=== PATIENT | female | born 1960 | race Caucasian/White ===

== ENCOUNTER 2018-03-24 05:56 | Day surgery (SDC) | payer BC, SELFPAY ==
[2018-03-24] VITALS (7 sets, daily range): BP systolic 117–156; BP diastolic 65–91; PULSE 66–88; RESP 10–20; TEMP 35.7–36.6; O2SAT 94–100
[2018-03-24] MEDS: Lactated Ringers 1,000 ML 80 ML IV (06:49)
[2018-03-24] MEDS: Bupivacaine 0.5% Pres-Free 30 ML VIAL (08:19)
--- NOTE | 2018-03-24 09:03 | PDOC.DSDIS_ITS ---
Discharge Plan Disposition Patient Disposition: HOME Condition: Improving Discharge Details Attending Provider: Antoine Quintana Primary Care Provider: Phylicia Evans Home Meds and New Rx's Prescriptions: No Action cyclobenzaprine 10 mg tablet 10 mg PO HS RF: 0 sumatriptan succinate [Imitrex] 100 mg tablet 100 mg PO ONCE RF: 0 venlafaxine [Effexor XR] 150 mg capsule,extended release 24hr 150 mg PO DAILY RF: 0 propranolol 10 mg tablet 10 mg PO DAILY RF: 0 ibuprofen [Advil] 200 mg tablet 200 mg PO QID PRNRF: 0 omeprazole 20 mg capsule,delayed release(DR/EC) 20 mg PO DAILY RF: 0 hydrochlorothiazide 25 mg tablet 25 mg PO DAILY RF: 0 alprazolam [Xanax] 2 mg tablet 2 mg PO HS RF: 0 propranolol 20 mg tablet 10 mg PO HS RF: 0 fluticasone [Allergy Relief (fluticasone)] 50 mcg/actuation spray,suspension 1 spray JUSTINA DAILY RF: 0 Prempro 0.45-1.5 mg tablet 1 tab PO DAILY RF: 0 Zyrtec 10 mg capsule 10 mg PO DAILY RF: 0 acetaminophen [Acetaminophen Extra Strength] 500 mg Tablet 1,000 mg PO Q6H PRNRF: 0 Multivitamin 50 Plus Tablet 1 tab PO RF: 0 Discharge Instructions Additional Instructions: KEEP YOUR RIGHT FOOT ELEVATED ABOVE HEART LEVEL MUCH POSSIBLE FOR THE NEXT 48-72 HOURS. YOU MAY WALK ON YOUR RIGHT FOOT AND PLACE MUCH WEIGHT ON IT COMFORT ALLOWS. INITIALLY YOU MAY NEED TO USE CRUTCHES FOR BALANCE AND PLACE THE MAJORITY OF YOUR WEIGHT ON THE HEEL OF YOUR POST OP SHOE. USE THE POST OP SHOE THE MAJORITY OF TIME. THIS INCLUDES SLEEPING IT EXTENDS BEYOND THE GREAT TOE AND PREVENTS THE BED COVERS FROM CATCHING ON THE GREAT TOE. YOU MAY LOOSEN THE ROSCOE BANDAGE IF IT FEELS TOO TIGHT.EXPECT SOME BLOODY DRAINAGE ON THE GAUZE BANDAGES. IT IS IMPORTANT TO MAXIMIZE ELEVATION TO LIMIT PAIN AND SWELLING SO ONLY GET UP TO GET SOMETHING TO EAT OR TO GO TO THE BATHROOM FOR THE FIRST COUPLE OF DAYS AFTER SURGERY. ON 03/28/18, YOU MAY REMOVE ALL OF YOUR BANDAGES AND GET YOUR WOUND WET IN THE SHOWER WITH SOAP AND WATER. GENTLY PAT THE STITCHES DRY AND COVER THEM WITH GAUZE. RE-APPLY THE POST OPERATIVE SHOE AND CONTINUE TO USE IT UNTIL FOLLOW-UP. FOR SHOWERING TOMORROW OR THE NEXT COUPLE OF DAYS KEEP YOUR FOOT DRY WITH A PLASTIC BAG ABOUT THE LOWER LEG. TAKE YOUR USUAL MEDICATIONS BEFORE. TAKE TYLENOL OR IBUPROFEN FOR MILDER PAIN. TYLENOL MAY BE TAKEN AT THE SAME TIME IBUPROFEN THEY ARE METABOLIZED DIFFERENTLY AND ARE NOT CROSS TOXIC. FOR MORE SERIOUS PAIN TAKE NORCO (HYDROCODONE 5/325MG) 1-2 EVERY 4 HOURS. [facility] REGULATIONS LIMIT THE AMOUNT OF NORCO THAT CAN BE PRESCRIBED TO 18 TABLETS. FOLLOW--UP WITH DR. QUINTANA IN 10-12 DAYS. Stand Alone Forms: DSU Post op Gianna, Renu Holland (DSU) Activity:: POST OP SHOE Shower/Bathe:: Cover Diet:: As Tolerated Discharge Orders Discharge Orders: Discharge Order (Routine); Ordered 03/24/18 Ordered By: Antoine Quintana
--- NOTE | 2018-03-24 10:23 | ROE_ITS ---
REPORT OF OPERATIVE PROCEDURE DATE OF PROCEDURE March 24, 2018 PREOPERATIVE DIAGNOSIS Hallux rigidus, right great toe. POSTOPERATIVE DIAGNOSIS Hallux rigidus, right great toe. PROCEDURE Cheilectomy right great toe. SURGEON Antoine Yeh M.D. HOME ORGANIZER Nurse. ANESTHETIC General via LMA by Kasia Gilbert CRNA PREP Chloraprep. INDICATIONS This patient has been followed by me for several years for hallux rigidus. She has failed conservativ e treatment. I recommended a cheilectomy of the great toe. I discussed with her the planned procedure . I re-reviewed that today in the Day Surgery holding area and she understood and wished to proceed. I marked her right foot with a surgical skin marker. DESCRIPTION OF PROCEDURE The patient was taken to the Operating Suite, where she underwent general anesthesia via LMA. Prophyl actic intravenous antibiotics were started consisting of Ancef 1 gram IV. A pneumatic tourniquet was applied to the proximal thigh. After prepping and draping the skin with ChloraPrep and applying steri le drapes, the limb was elevated for 2 minutes and then the tourniquet was inflated to 350 mmHg. I th en made a dorsal incision over the MTP joint of the great toe as described by Kunal. The incision was made just medial to the extensor hallucis longus tendon. The tendon was identified and retracted with Ragnell retractors. The underlying capsule was then incised and preserved. The patient was noted to have a loose body of articular cartilage immediately underneath the capsule. In addition, she had a v krupa prominent exostosis. Using a combination of sharp and blunt dissection, the metatarsal head was e xposed. A micro oscillating saw was then used to perform the cheilectomy as described by Kunal. The ed ges of the bone were carefully smoothed with a rasp. I noted that the patient had essentially no sign ificant MTP joint motion prior to surgery; afterwards, her range of motion was nearly 80 degrees of d orsiflexion. The wound was carefully irrigated. Bone wax was applied to the metaphyseal flare where t he bone had been cut. The capsule was then repaired with sutures of #2-0 Vicryl. The subcutaneous tis sues were repaired with sutures of #4-0 Vicryl, and the skin was closed with #4-0 Nylon in a horizont al mattress fashion. The tourniquet was deflated prior to closure of the subcutaneous tissues. Hemost asis was under control. A small amount of Marcaine, 10 cc of 0.5% solution was placed in the skin and subcutaneous tissues and intra-articularly to provide for postoperative analgesia. The wound was danny ssed with Xeroform gauze, 4x4s, a 3-inch conforming gauze bandages, followed by 3-inch Elias wrap and a postoperative shoe. The patient was taken to the Recovery Room in satisfactory condition tolerating the procedure well.
== END 2018-03-24 10:25 | disposition home or self-care (01) ==
PROVIDERS: PCP Physician Assistant Medical; Visit Provider Orthopaedic Surgery
PROC: (CPT 28289; principal; 2018-03-24 07:30)
DX: M20.21 Hallux rigidus, right foot (principal)
CPT/HCPCS: 28289; E0114

== ENCOUNTER → 2022-02-06 01:52 | Outpatient (CLI) | payer BC, SELFPAY ==
--- NOTE | 2022-02-06 07:15 | DI.MRI_ITS ---
Exam(s) MR UPPER JOINT LT WO CLINICAL HISTORY: lt shoulder pain, lt rotator cuff tear, m75.102. TECHNIQUE: Multiplanar multisequence MRI was performed. COMPARISON: None FINDINGS: MR examination of the shoulder was performed according to the usual protocol. There is no significant effusion of the glenohumeral joint. No fluid in the subacromial subdeltoid bu rsa. Bones and labrum: There are moderate hypertrophic degenerative changes of the acromioclavicular joint . Humeral head abuts the inferior acromial surface period there are subchondral cysts of the greater tuberosity of the humerus which appear to be degenerative period. Glenoid labrum appears effaced wi th no no definite discrete tear period. Rotator cuff: There is a massive rotator cuff tear involving the supraspinatus and infraspinatus ten dons with marked retraction by at least 3 cm. There is severe muscle atrophy of supraspinatus and in fraspinatus muscles. Teres minor and subscapularis appear fairly well maintained. Rotator interval shows abnormal signal but no definite tear. . Biceps tendon and anchor: Biceps tendon and anchor show normal signal and no evidence of a tear. Ben ps tendon is normally positioned in the bicipital groove. IMPRESSION: Massive rotator cuff tear with retraction of supraspinatus and infraspinatus tendons and severe muscu lar atrophy of supraspinatus and infraspinatus. Goutallier classification grade 3. DATA REPOSITORY:
== END ==
PROVIDERS: PCP Physician Assistant Medical; Visit Provider Student in an Organized Health Care Education/Training Program
DX: M75.102 Unspecified rotator cuff tear or rupture of left shoulder, not specified as traumatic (principal)
CPT/HCPCS: 73221

== ENCOUNTER → 2023-04-09 10:30 | Outpatient (BNVA) | payer MEDICARE, BC, SELFPAY | PROVIDERS: PCP Physician Assistant Medical; Referring Provider Physician Assistant Medical; Visit Provider Student in an Organized Health Care Education/Training Program | DX: M17.11 Unilateral primary osteoarthritis, right knee (principal); M17.12 Unilateral primary osteoarthritis, left knee | CPT/HCPCS: 20610; J1040 ==

== ENCOUNTER → 2023-07-20 10:25 | Outpatient (BNVA) | payer MEDICARE, BC, SELFPAY | PROVIDERS: PCP Physician Assistant Medical; Referring Provider Physician Assistant Medical; Visit Provider Student in an Organized Health Care Education/Training Program | DX: M17.11 Unilateral primary osteoarthritis, right knee (principal); M17.12 Unilateral primary osteoarthritis, left knee | CPT/HCPCS: 20610; J1010; J1040 ==

== ENCOUNTER → 2023-10-19 12:50 | Outpatient (BNVA) | payer MEDICARE, BC, SELFPAY | PROVIDERS: PCP Physician Assistant Medical; Referring Provider Physician Assistant Medical; Visit Provider Student in an Organized Health Care Education/Training Program | DX: M17.11 Unilateral primary osteoarthritis, right knee (principal); M17.12 Unilateral primary osteoarthritis, left knee | CPT/HCPCS: 20610; J1010 ==

== ENCOUNTER 2024-01-18 15:37 | Outpatient (CLI) | payer MEDICARE, BC, SELFPAY ==
--- NOTE | 2024-01-18 12:18 | DI.RAD_ITS ---
Exam(s) XR KNEE RT 3V AP,LAT,AVILA XR KNEE LT 3V AP,LAT,AVILA XR STANDING ALIGNMENT EXAM: XR STANDING ALIGNMENT and XR knee bilateral 3 V CLINICAL HISTORY: eval knee alignment. TECHNIQUE: 2D digital imaging was performed. Ten images were obtained. COMPARISON: CR LEFT KNEE 3 VIEW COMPLETE from 02/07/2014 CR RIGHT KNEE 3 VIEWS from 07/15/2017 FINDINGS: BONES: The hips are well maintained. In the right knee, there is marked narrowing of the patellofemo ral joint medially. There osteophytes seen at the posterior patella and the medial femoral tibial elias int. No significant joint effusion is seen. In the left knee, there is moderate narrowing of the me dial femoral tibial joint and mild narrowing of the patellofemoral joint. Osteophytes are seen in al l 3 joint compartments. There are old healed left tibial and fibular fractures. The ankles are well maintained.There is no significant leg length discrepancy. SOFT TISSUE: Normal. IMPRESSION: Osteoarthritis of the knees bilaterally as described above. DATA REPOSITORY: RADIATION DOSE DELIVERED:
== END 2024-01-18 15:38 | disposition home or self-care (01) ==
LOC: DIORS 15:37
PROVIDERS: PCP Physician Assistant Medical; Referring Provider Physician Assistant Medical; Visit Provider Student in an Organized Health Care Education/Training Program
DX: M17.0 Bilateral primary osteoarthritis of knee (principal)
CPT/HCPCS: 73562; 77073

== ENCOUNTER 2024-02-25 03:07 | Outpatient (CLI) | payer MEDICARE, BC, SELFPAY ==
[2024-02-25 15:20] LABS: HCT 42.6 % (36.0-46.0); HGB 14.4 g/dL (11.2-15.7); MCH 31.4 pg (27.0-33.0); MCHC 33.8 % (32.0-36.0); MCV 93 fL (80-95); MPV 9.1 fL (8.0-11.0); Platelet Count 316 10^3/uL (130-400); RBC 4.59 10^6/uL (3.93-5.22); RDW 11.8 % (11.7-14.6); RDW-SD 40.4 fL
[2024-02-25 16:17] LABS: Anion Gap 7.8 mmol/L (3-11); BUN 24 mg/dL (7-18); CO2 30.2 mmol/L (21.0-32.0); CREATININE 0.8 mg/dL (0.55-1.02); Calcium 9.5 mg/dL (8.5-10.1); Chloride 99 mmol/L (98-107); Estimated GFR 81.21 (mL/min/1.73m2); Glucose 107 mg/dL (74-106); Potassium 3.8 mmol/L (3.5-5.1); Sodium 137 mmol/L (136-145)
== END 2024-02-25 03:08 | disposition home or self-care (01) ==
LOC: LBO 03:07
PROVIDERS: PCP Physician Assistant Medical; Visit Provider Student in an Organized Health Care Education/Training Program
DX: M17.12 Unilateral primary osteoarthritis, left knee (principal); Z01.818 Encounter for other preprocedural examination
CPT/HCPCS: 36415; 80048; 85027

== ENCOUNTER 2024-03-09 06:01 | Day surgery (SDC) | payer MEDICARE, BC, SELFPAY ==
[2024-03-09] VITALS (18 sets, daily range): BP systolic 108–130; BP diastolic 64–85; PULSE 59–84; RESP 14–96; TEMP 36.1–36.6; O2SAT 92–100; BMI 21.9
[2024-03-09] MEDS: Gabapentin 300 MG CAP PO (07:00)
[2024-03-09] MEDS: Celecoxib 200 MG CAP 400 MG PO (07:00)
[2024-03-09] MEDS: Acetaminophen 500 MG TAB 1000 MG PO (07:00)
[2024-03-09] MEDS: Normal Saline 1,000 ML 80 ML IV (07:10)
--- NOTE | 2024-03-09 07:15 | W.PM.DSUDISC ---
Date of service: 03/09/24 Discharge Plan Disposition Patient Disposition: Home Condition: Good Discharge Details Reason For Visit: L TKR Attending Provider: Yinka Carpio Primary Care Provider: Phylicia Evans Home Meds and New Rx's Prescriptions: New celecoxib 200 mg capsule 200 mg PO BID Qty: 60 0RF aspirin 81 mg tablet,delayed release (DR/EC) 81 mg PO BID Qty: 60 0RF acetaminophen 500 mg tablet 1,000 mg PO TID Qty: 90 3RF dexamethasone 4 mg tablet 4 mg PO DAILY Qty: 2 0RF gabapentin 300 mg capsule 300 mg PO QHS Qty: 14 0RF oxycodone 5 mg tablet 5 mg PO Q4H MDD 6 tabs PRN (Reason: pain) Qty: 20 0RF Continued sumatriptan succinate [Imitrex] 100 mg tablet 100 mg PO ONCE propranolol 10 mg tablet 10 mg PO DAILY omeprazole 20 mg capsule,delayed release(DR/EC) 20 mg PO DAILY hydrochlorothiazide 25 mg tablet 25 mg PO DAILY alprazolam [Xanax] 2 mg tablet 2 mg PO HS fluticasone propionate [Allergy Relief (fluticasone)] 50 mcg/actuation spray,suspension 1 spray JUSTINA DAILY propranolol 20 mg tablet 20 mg PO HS cyclobenzaprine 10 mg tablet 10 mg PO HS venlafaxine [Effexor XR] 150 mg capsule,extended release 24hr 75 mg PO DAILY estradiol 0.025 mg/24 hr patch semiweekly 4 patch transdermal ONCE Patient Comments: placed lower mid abdomen Rx Instructions: 0.50 bupropion HCl 100 mg tablet 100 mg PO DAILY biotin 5,000 mcg tablet,chewable 5,000 mcg PO DAILY flaxseed oil 1,000 mg capsule 1,000 mg PO DAILY Rx Instructions: administer with a meal omega 5-jxx-jgn-fish oil [Fish Oil] 360-1,200 mg capsule,delayed release(DR/EC) 1 cap PO DAILY cholecalciferol (vitamin D3) 25 mcg (1,000 unit) capsule 25 mcg PO DAILY progesterone micronized 100 mg capsule 100 mg PO QAM Rx Instructions: off 7 days; repeat cycle Zyrtec 10 mg capsule 10 mg PO DAILY PRN Multivitamin 50 Plus Tablet 1 tab PO DAILY bimatoprost 0.03 % drops with applicator TOPICAL Patient Comments: APPLY 1 DROP VIA APPLICATORONCE A DAY Discontinued naproxen [Naprosyn] 500 mg tablet 500 mg PO BID Discharge Instructions Additional Instructions: Total Knee Discharge Instructions Activity: The most important activity is to walk and to work on gentle motion (both flexion and extension). You should try to take short walks a few times a day. It is important that when resting you work on keeping the knee straight. Avoid putting a pillow behind the knee as this will encourage flexion. Work on range of motion exercises as provided by Physical Therapy. - Start outpatient physical therapy within 2 weeks. - You should wear the JALEEL hose on both legs for 2 weeks. You may remove these at night. You may also use any compression sock in place of the JALEEL hose. - Utilize [employer] to review exercises, see videos on exercises and obtain basic information pertaining to your surgery and your recovery. Dressing: Remove the Elias wrap by 2 days after your surgery and put on the JALEEL stocking given to you from the hospital. Keep the surgical dressing (underneath the ELIAS wrap) in place for at least one week. After the first week it may be removed and replaced with light gauze and tape or nothing. The wound and dressing may get wet after 3 days but avoid soaking the dressing or otherwise it will need to be changed. Many people prefer covering the dressing with cling wrap (saran wrap) to minimize it from getting soaked. If it gets wet, just pat dry. If it starts to peel off then it will need to be changed. Medications: - You should take Tylenol and anti-inflammatory Celebrex as your primary pain control medications. If the Celebrex is too expensive or not covered, please call the office for another alternative (Advil/Ibuprofen or Naproxen/Aleve) - You have been prescribed a stronger pain medication Oxycodone for breakthrough pain, take as needed as prescribed. - You will continue your omeprazole to help reduce stomach acid and reflux. - You have been prescribed Gabapentin to take at night for restlessness and nerve pain. - You will be taking Aspirin 81mg twice a day for DVT prevention unless instructed otherwise. - You have also been prescribed Decadron to take to control post-operative nausea and pain. You will start this tomorrow. - If you have constipation you should take Colace or Miralax (both [id number]-[id number]). It takes most people 3-4 days to have a bowel movement. Follow-up: 2 weeks If you have any acute concerns or questions, please do not hesitate to contact the office at [phone]. You may contact Dr. Carpio with any questions after hours through the hospital at [phone] or on his cell phone at [phone]. Referrals: Yinka Carpio MD [ [facility] STAFF PHYSICIAN] - Equipment/Supplies: Walker Activity:: Activity as Tolerated Shower/Bathe:: 72 hours Diet:: As Tolerated Discharge Orders Discharge Orders: Discharge Order (Routine); Ordered 03/09/24 Ordered By: Jairon Dunbar DS: Diagnosis Discharge Diagnosis (1) Degenerative arthritis of left knee: Status: Chronic
--- NOTE | 2024-03-09 07:24 | W.ANESPRE ---
General Info Date of Service Date Performed: 03/09/24 Height: 4 ft 11 in Weight: 49.4 kg Body Mass Index (BMI): 21.9 Surgical Procedure: Operation Date: 03/09/24 07:40 Proposed Procedure Side Surgeon p Knee Total Arthroplasty w/OrthAlign, Cementless CR Left Yinka Carpio MD Actual Procedure Side Surgeon p Knee Total Arthroplasty w/OrthAlign, Cementless CR Left Yinka Carpio MD Meds Allergies and Home Medications Allergies Allergy/AdvReac Type Severity Reaction Status Date / Time hylan G-F 20 (From [facility]) AdvReac Mild pt unable Verified 03/09/24 06:24 to remember exactly. Home Medication ?Medication ?Instructions ?Recorded alprazolam 2 mg tablet (Xanax) 2 mg PO HS 03/15/18 fluticasone propionate 50 1 spray intranasal DAILY 03/15/18 mcg/actuation nasal spray,suspension (Allergy Relief (fluticasone)) hydrochlorothiazide 25 mg tablet 25 mg PO DAILY 03/15/18 omeprazole 20 mg capsule,delayed 20 mg PO DAILY 03/15/18 release propranolol 10 mg tablet 10 mg PO DAILY 03/15/18 sumatriptan succinate 100 mg 100 mg PO ONCE 03/15/18 tablet (Imitrex) [id number] 1 tab PO DAILY 03/24/18 tablet (Multivitamin 50 Plus tablet) propranolol 20 mg tablet 20 mg PO HS 10/24/19 progesterone micronized 100 mg 100 mg PO QAM 09/12/21 capsule cyclobenzaprine 10 mg tablet 10 mg PO HS 01/13/22 estradiol 0.025 mg/24 hr 4 patch transdermal ONCE 07/20/23 semiweekly transdermal patch venlafaxine 150 mg 75 mg PO DAILY 07/20/23 capsule,extended release 24 hr (Effexor XR) cetirizine 10 mg capsule (Zyrtec) 10 mg PO DAILY PRN 08/20/23 biotin 5,000 mcg chewable tablet 5,000 mcg PO DAILY 02/25/24 bupropion HCl 100 mg tablet 100 mg PO DAILY 02/25/24 cholecalciferol (vitamin D3) 25 25 mcg PO DAILY 02/25/24 mcg (1,000 unit) capsule flaxseed oil 1,000 mg capsule 1,000 mg PO DAILY 02/25/24 omega-3 360 iq-zrp-heq-fish oil 1 cap PO DAILY 02/25/24 1,200 mg capsule,delayed release (Fish Oil) acetaminophen 500 mg tablet 1,000 mg (2 x 500 mg) PO TID #90 03/09/24 tabs aspirin 81 mg tablet,delayed 81 mg PO BID #60 tabs 03/09/24 release bimatoprost 0.03 % drops with topical 03/09/24 applicator, eyelash base celecoxib 200 mg capsule 200 mg PO BID #60 caps 03/09/24 dexamethasone 4 mg tablet 4 mg PO DAILY #2 tabs 03/09/24 gabapentin 300 mg capsule 300 mg PO QHS #14 caps 03/09/24 oxycodone 5 mg tablet 5 mg PO Q4H PRN pain #20 tabs 03/09/24 Current Visit Medications: Current Medications Generic Name Dose Route Start Last Admin Trade Name Freq PRN Reason Stop Dose Admin Acetaminophen 1,000 mg 03/09/24 06:00 03/09/24 07:00 Acetaminophen 500 Mg Tab PO 03/09/24 23:59 1,000 mg PREOP ROMA Administration Acetaminophen 1,000 mg 03/09/24 07:12 Acetaminophen 500 Mg Tab PO 04/08/24 08:29 TID PRN Analgesia Celecoxib 400 mg 03/09/24 06:00 03/09/24 07:00 Celecoxib 200 Mg Cap PO 03/09/24 23:59 400 mg PREOP ROMA Administration Docusate Sodium 100 mg 03/09/24 07:12 Docusate Sodium 100 Mg Cap PO 04/08/24 07:11 BID PRN PRN Constipation Gabapentin 300 mg 03/09/24 06:00 03/09/24 07:00 Gabapentin 300 Mg Cap PO 03/09/24 23:59 300 mg PREOP ROMA Administration Gabapentin 300 mg 03/09/24 20:00 Gabapentin 300 Mg Cap PO 04/08/24 19:59 HS ROMA Ringer's Solution 1,000 mls @ 80 mls/hr 03/09/24 06:00 IV 03/09/24 23:59 INFUSION ROMA Cefazolin Sodium/Dextrose 2 gm in 50 mls @ 100 mls/hr 03/09/24 06:00 Ancef Duplex IVPB 03/09/24 23:59 PREOP ROMA Tranexamic Acid/Sodium Chloride 1,000 mg in 100 mls @ 600 mls/hr 03/09/24 06:00 IVPB 03/09/24 23:59 PREOP ROMA Sodium Chloride 1,000 mls @ 80 mls/hr 03/09/24 07:15 03/09/24 07:10 Saline 1000ml Bag IV 04/08/24 07:14 80 mls/hr INFUSION ROMA Administration IV Miscellaneous Supplies 1 each 03/09/24 06:00 Iv Access IV 03/09/24 23:59 DIRECTED ROMA Ondansetron HCl 4 mg 03/09/24 07:12 Ondansetron 4 Mg/2 Ml Vial IVP 04/08/24 07:11 Q6H PRN PRN Nausea Oxycodone HCl 0 mg 03/09/24 07:12 Oxycodone 5 Mg Tab PO 04/08/24 07:11 Q3H PRN PRN Pain Polyethylene Glycol 17 gm 03/09/24 07:12 Polyethylene Glycol 3350 17 Gm Packet PO 04/08/24 07:11 BID PRN PRN Constipation Sodium Chloride 0 ml 03/09/24 06:00 Normal Saline Flush 10 Ml Syr IV 03/09/24 23:59 PRN PRN Sodium Chloride 0 ml 03/09/24 06:00 Normal Saline 10 Ml Vial IJ 03/09/24 23:59 DIRECTED PRN Sterile Water 0 ml 03/09/24 06:00 Water,Injection,Sterile 10 Ml Vial IJ 03/09/24 23:59 DIRECTED PRN PFSH Active Problems Active Problems: Problem Status Onset Code Rotator cuff tear arthropathy Acute M75.100, M12.819 Depressive disorder Chronic F32.A Left carpal tunnel syndrome Acute G56.02 Left rotator cuff tear arthropathy Acute M75.102, M12.812 Arthritis of right knee Chronic M17.11 Pre-operative examination Acute Z01.818 Hallux rigidus, right foot Chronic M20.21 Degenerative arthritis of left knee Chronic M17.12 Medical History Medical History (Updated 03/09/24 @ 06:32 by Gisella Hawkins) History of insertion of dental endosseous implant GERD (gastroesophageal reflux disease) Migraines HTN (hypertension) Surgical History Surgical History (Updated 03/09/24 @ 06:32 by Gisella Hawkins) Hx of colonoscopy H/O foot surgery cheilectomy right greater toe Tobacco Smoking/Tobacco Use Status: Never Alcohol Alcohol Intake: current Alcohol intake frequency: a few times a week Alcohol type: beer Substance Use Substance use: Daily Substance use type: marijuana Details: edible Vital Signs and Lab Results Vital Signs Most Recent Vital Signs in EMR: Most Recent Vital Signs Temp Pulse Resp BP Pulse Ox 36.6 C 75 16 130/75 99 03/09/24 06:10 03/09/24 06:10 03/09/24 06:10 03/09/24 06:10 03/09/24 06:10 Lab Results Blood Type / Crossmatch: No Data to Display Complete Blood Count: White Blood Count 7.00 10^3/uL (4.4-10.8) 02/25/24 15:14 Red Blood Count 4.59 10^6/uL (3.93-5.22) 02/25/24 15:14 Hemoglobin 14.4 g/dL (11.2-15.7) 02/25/24 15:14 Hematocrit 42.6 % (36.0-46.0) 02/25/24 15:14 Platelet Count 316 10^3/uL (130-400) 02/25/24 15:14 Complete Metabolic Panel: Sodium 137 mmol/L (136-145) 02/25/24 15:14 Potassium 3.8 mmol/L (3.5-5.1) 02/25/24 15:14 Chloride 99 mmol/L (98-107) 02/25/24 15:14 Carbon Dioxide 30.2 mmol/L (21.0-32.0) 02/25/24 15:14 BUN 24 mg/dL (7-18) H 02/25/24 15:14 Creatinine 0.8 mg/dL (0.55-1.02) 02/25/24 15:14 Est GFR (CKD-EPI 2020) 81.21 (mL/min/1.73m2) 02/25/24 15:14 Calcium 9.5 mg/dL (8.5-10.1) 02/25/24 15:14 Glucose 107 mg/dL (74-106) H 02/25/24 15:14 Liver Function Panel: No Data to Display Coagulation Panel: No Data to Display Cardiac Panel: No Data to Display Arterial Blood Gas: No Data to Display Venous Blood Gas: No Data to Display Pancreas Panel: No Data to Display Thyroid Panel: No Data to Display Infectious Disease: No Data to Display Blood Cultures: No Data to Display Toxicology Panel: No Data to Display Anesthesia Assessment and Plan Anesthesia History Personal History: No History of Anesthesia Complications Family History: No Family History of Anesthesia Complications Exercise Tolerance Exercise Tolerance: Metabolic Equivalents>4 Pertinent Negatives Pertinent Negatives: No Major Cardiovascular Symptoms or Complaints and No Major Pulmonary Symptoms or Complaints Cardiac & Pulmonary Exam Cardiac Exam: Normal S1/S2 Heart Sounds Pulmonary Exam: Clear Bilateral Breath Sounds Implantable Cardiac Device Does patient have a Pacemaker or an ICD?: No Airway Exam Known Difficult Airway: No Mallampati Class: 1 Mouth Opening: Normal (> 3cm) Thyromental Distance: Greater than 3 cm Neck Range of Motion: Full ROM Neck Circumference: Normal Teeth Condition: Normal Dentition ASA Classification ASA Score: ASA 2 Emergency Case?: No NPO Status NPO Status: NPO Clears >2 hours, Solids >8 hours Anesthesia Plan Resuscitation Status: Full Code Anesthesia Technique: Spinal Anesthesia Airway Planned: Natural Airway Pain Management: Surgeon and patient request nerve block Monitors Used: Standard Monitors
[2024-03-09] MEDS: Lactated Ringers 1,000 ML 80 ML IV (07:36)
--- NOTE | 2024-03-09 07:43 | ROE_ITS ---
Operative Note Operative Note PRE-OP DIAGNOSIS: Left Knee Arthritis POST-OP DIAGNOSIS: same PROCEDURE: Left Total Knee Replacement with Intraoperative Navigation SURGEON: Yinka Carpio CAMPUS CHAPLAIN: Neyda Dunbar ANESTHESIA TYPE: Spinal Refer to Anesthesia Record PATHOLOGY: none sent TOURNIQUET TIME: 0 COMPLICATIONS: None Patient was transported to: PACU Patient's condition: stable Implants: 1. Depuy Attune Cementless Cruciate Retaining Femoral Component, Size [6] 2. Depuy Attune Cementless Fixed Bearing Tibial Component, Size [6] 3. Depuy Attune [6x6]mm CR/FB Poly 4. Depuy Attune Patellar Component, Size [35] Indications: I have seen Kaylyn in clinic for symptoms of bilateral, left worse than right, knee arthritis, confirmed with radiographic findings. She has exhausted nonoperative methods and was having significant limitations in daily function and desired better function and less pain. I discussed the technical details of a knee replacement. I explained the risks of the procedure to include, but not limited to, bleeding, infection, pain, stiffness, fracture, damage to nerves and vessels, damage to muscles and tendons, loosening, need for repeat procedure, blood clot and cardiopulmonary demise. Despite these risks, Kaylyn elected to proceed. Given the previous malunion of her distal tib-fib from remote fracture, I utilized intraoperative navigation, OrthoAlign. Findings: There was significant signs of arthritis throughout the knee. Procedure Description: Kaylyn was greeted in the preoperative holding area where the correct side was identified and marked. The consent was reviewed with the patient and signed. The history and physical was updated. All questions were answered. Preoperative mediacations were administered: Acetaminophen 1000mg, Celebrex 400mg, and Gabapentin 300mg. An adductor canal block was then administered by the anesthesia team in the DSU. She was taken back to the operating room. A spinal anesthestic was then administered. The patient was placed into the supine position on the operating room table. Posts were placed for positioning during the procedure. All bony prominences were well padded. Prophylactic antibiotics in the form of Cefazolin were administered. 1g of Tranxemic Acid was given intravenously within 30 minutes of incision. The left leg was then prepped with Chloraprep and draped in a standard fashion with impervious stockinette. A second prep with Chloraprep was performed prior to application of Iodine impregnated skin protection. A timeout to confirm correct identity, side and site, procedure, allergies, anesthesia, and medical concerns was performed. With the knee in some flexion, a midline incision was made overlying the knee. Full thickness skin flaps were raised once the extensor mechanism was encountered. These were raised medially and laterally. Any bleeding was controlled with electrocautery. Once the extensor mechanism was fully exposed, a medial parapatellar arthrotomy was performed in a flexed position. All bleeding from the arthrotomy and the geniculate arteries was coagulated. A medial subperiosteal peel was performed with electrocautery to the midcoronal plane. The fat pad was removed while keeping the patellar tendon protected. The anterior distal femur synovium was removed for later visualization. The ACL and PCL were resected and the anterior horn of the lateral meniscus was transected. The knee was then flexed with the patella everted. Large osteophytes from the tibia were removed. Large osteophytes from the femur were removed. A single starting pin was then placed 1cm anterior to the PCL insertion and the notch in the direction of the femoral head. The OrthoAlign device was applied over the pin. It was oriented to be in line with the epicondylar axis and the trochlear groove. It was then pinned into place. The navigation computer was then turned on and calibrated. The distal femur cut was set at 0 degrees varus/valgus and 3.5 degrees flexion. The distal femur cutting guide then was positioned for a 9mm cut. The distal femur was cut with an oscillating saw while protecting the soft tissues. The tibia was then addressed. The OrthoAlign device was placed over the tibial tubercle and medial tibia and secured into position. Once again, OrthoAlign was calibrated and then set for a 1.5 degree varus cut and 5.5 degrees of posterior slope. With this locked into position, the cut thickness stylus was used to assess cut thickness. The medial side, most involved side, was set for a 4mm cut, corresponding 8mm laterally. This was then held in position and pinned into place with 2 additional pins and a cross pin for stability. The medial and lateral collateral ligaments were protected and the cut was performed. With this completed, it was assessed and noted to be of appropriate dimensions. The guide and OrthoAlign was removed. A spacer block was inserted and the knee was brought into extension to ensure enough space was present. . The Orthoalign gap balancing device was then placed in extension. This was used to ensure that the ligaments were properly balanced with up to 2 to 3 mm laxity laterally compared medially. The extension gap was measured as 18mm. The knee was then brought into 90 degrees of flexion and the ligament broadcast operations manager was once again placed. Under the same amount of force the flexion gap was measured. The Attune specific jig was placed and the flexion gap was made to match the extension gap. The femur was then sized as a size 4 Narrow. The 4-in-1 cutting guide was the placed. An kwasi wing was used to confirm appropriate position of the anterior cut to avoid notching. This cutting guide was ensured to be flush on the cut surface and then pinned into place with headed pins. While protecting the soft tissues, quad tendon, and collateral ligaments, the anterior and posterior cuts were performed with a saw. The central two pins were removed and the posterior and anterior chamfers were cut next. The notch-cutting guide was placed. This was pinned to lateralize the femoral component as much as possible while keeping it flush on the cut surface. This was then pinned into position. A saw was used to make the notch cut. A rasp smoothed the cut surfaces. The medial and lateral menisci were removed. A trial femoral component was then inserted, impacted down to the cut surfaces, and the lug holes were drilled. A provisional trial tibial component was placed and the knee was brought through range of motion. There was noted to be excellent extension and flexion. There was no significant instability. The patella was tracking without thumbs. A size 5mm polyethylene component provided the best range of motion and stability with less than 2mm gapping with medial and lateral stress and full extension without significant hyperextension. The tibial cut surface was fully exposed. The tibia was then sized as a 2. The tibia had been previously marked during trialing to correspond to the center of the tibial component to help with rotation. The trial was aligned to this enyda, approximately rotated to the medial 1/3rd of the tibial tubercle. The trial was pinned into place. The tibia was prepared with a reamer and a keel punch and lug holes. The knee was then brought into extension and the patella was measured as 21mm. Using the patellar clamp and cut guide, this was resected to a flat surface with at least 13mm of thickness remaining. The size 32 patella fit the best. This was oriented and then clamped into position. The lugs were drilled. The trial components were removed. The final components were opened on the back table. The periosteal and capsular tissues, especially posteriorly, around the knee were then systematically injected with a periarticular cocktail consisting of 246mg of Ropivacaine, 0.5mg of Epinephrine, 0.08mg of Clonidine, and 30mg of Ketorolac, diluted to 100cc. On the back table, with the implants opened, the cement was mixed. One batch of high viscosity cement was prepared with vacuum assistance. After the cement was ready a small amount was placed on the cut surface of the patella and the patellar button was clamped into position and held. While the cement was hardening, the cementless knee components were placed. Starting with the tibial component, the tibia was subluxed anteriorly and the lug holes of the component were lined up. The tibia was then impacted with an impactor and mallet until the tibial component was in contact with the tibia. Then, the femoral component was inserted. The lug holes were aligned and the component was impacted into position. The final polyethylene component was inserted. The knee was irrigated with Surgiphor Betadine solution. This was allowed to sit in the knee for 3 minutes and then it was thoroughly irrigated out with saline. After the cement had finally cured, approximately 15min, the clamp was removed from the patella and the knee was taken through range of motion. The patella was tracking with a no-thumbs technique. The capsule was then reapproximated with a No. 1 Vicryl at multiple locations. The capsule was finally closed with a No. 2 Stratafix, barbed suture. Deep tissues were then reapproximated with 0 Vicryl and 2-0 Vicryl. The skin was closed with a running 3-0 Monocryl in a subcuticular fashion. This was reinforced with skin glue. A Mepilex silver dressing was applied along with a [id number] ROSCOE wrap. A CryoCuff was applied. Kaylyn was transferred to the hospital bed without difficulty an suffering no apparent complication. She has a good prognosis. Physical therapy will start today and without restrictions, weight-bearing as tolerated. Aspirin 81mg BID will be used for DVT prophylaxis. Date of Procedure: 03/09/24
[2024-03-09] MEDS: ceFAZolin 2 GM/50 ML BAG IVPB (07:55)
[2024-03-09] MEDS: TRANEXAMIC ACID/SOD. CHL. 1,000 MG/100 ML BAG 600 MG IVPB (08:00)
--- NOTE | 2024-03-09 08:24 | W.ANESNERVE ---
Nerve Block Single Injection Procedure Date and Time Date Performed: 03/09/24 Procedure Start: 07:26 Location Where Procedure Performed Procedure Location: Day Surgery Unit Reason Performed: Postoperative Analgesia Requesting Provider: Yinka Carpio Timeout Performed Timeout Performed: Yes Monitoring Used ECG, Blood Pressure, SpO2 and See EMR for corresponding vital signs Sterility Sterility: Hand Hygiene, Surgical Cap, Surgical Mask, Sterile Gloves and Chlorhexidine Sedation Given During Procedure Sedation Given (Indicate Dose Given): Versed IV Dose:: 2mg Patient Mental Status Patient Mental Status: Sedate with meaningful communication Nerve Block 1st Nerve Block: Laterality: Left Block Type: Adductor Canal Ultrasound Image Saved?: Yes Needle / Catheter Used: 80mm SonoPlex II Local Anesthetic Bolus (Indicate Dose Given): Lidocaine used for local infiltration of skin, Injected in 3-5ml increments after negative blood aspiration and Bupivacaine 0.25% Dose:: 10mL Additives (Indicate Dose Given): None Ultrasound: Sterile probe cover and gel used Nerve Stimulator: Supplement to Ultrasound use and No twitch or parasthesia noted < 0.5 mA Paresthesia: None Procedure Tolerated: No Complications Procedure Outcome: Successful Procedure Comment: Florentino Shirley CRNA present for block to help assist with patient. Performed By: Bertha Ontiveros
--- NOTE | 2024-03-09 11:23 | W.ANESPOSTOP ---
Postoperative Evaluation Date, Time and Location Date Performed: 03/09/24 Time Performed: 11:23 Patient Location: Day Surgery Unit Vital Signs Most Recent Imported Vital Signs: Most Recent Vital Signs Temp Pulse Resp BP Pulse Ox 36.4 C L 76 96 H 115/70 97 03/09/24 10:51 03/09/24 10:51 03/09/24 10:51 03/09/24 10:51 03/09/24 10:51 Pain Score Most Recent Pain Score: Most Recent Pain Score Pain Level 0 03/09/24 10:51 Assessment Mental Status: Awake (Alert & Oriented to Patient Baseline) Airway and Respiratory Function: Patent airway with normal (patient baseline) respiratory exam Cardiovascular Function: Hemodynamically Stable Hydration Status: Adequately Hydrated Nausea & Vomiting: No Nausea or Vomiting Pain: Pt. Denies Any Pain Peripheral Nerve Block: Regional nerve block not resolved at time of post operative discharge
--- NOTE | 2024-03-09 11:25 | IN_ITS ---
PT Notes Visit Reasons: L TKR Physical Therapy Day Surgery Initial Evaluation Date: 03/10/2024 Referring Doctor: SANDEEP Monterroso PT Orders: PT CONSULT: S/P Ortho Surgery Precautions: WBAT on the left LE with AD. Patient Profile/Admitting Diagnosis: Kaylyn is a 64-year-old female with degenerative joint disease of the left knee and status post left total knee arthroplasty on postoperative day 0. PMHX: Rotator Cuff tear arthropathy Depression L carpal tunnel syndrome Social History/Home Situation: Lives with in a private home with 4 steps to enter with a rail on one side. Independent with all aspects of ADLs prior to surgery. Retired voice coach. Equipment Owned/DME: None Subjective: Denied headache, chest pain, and lightheadedness throughout session. Reported mild ache in the back of the left knee. Objective: General Observation: Elias wraps to left LE. Cryo/Cuff to left knee. P aul present throughout session. Mental Status: A and O x 4 Pain: 1/10 pain in the back of the left knee ROM: Right Lower Extremity: Hip flexion WFL. Hip abduction WFL. Knee flexion WFL. Ankle dorsiflexion WFL. Ankle plantarflexion WFL. Left Lower Extremity: Hip flexion WFL. Hip abduction WFL. Knee flexion 0-100. Ankle dorsiflexion WFL. Ankle plantarflexion WFL. Strength: Right Lower Extremity: Hip flexors 5/5. Hip abductors 5/5. Knee flexors 5/5. Knee extensors 5/5. Ankle dorsiflexors 5/5. Ankle plantarflexors 5/5. Left Lower Extremity:Hip flexors 5/5. Hip abductors 5/5. Knee flexors 3-/5. Knee extensors 3-/5. ankle dorsiflexors 5/5. Ankle plantarflexors 5/5. Sensation: Intact tested pain and light pressure in B LE Bed Mobility/Transfers: Minimal cueing provided for use of B hands as needed for support, movement sequence, AD management, and posture to reduce fall risk and minimize pain report Sit to stand contact-guard assist with FWW Stand to sit stand by assist Bed to chair stand by assist Gait: Facilitate safe and correct performance of level surface ambulation covering a distance of 150 feet using front wheel walker with reciprocal swing through gait pattern requiring only standby assist and minimal verbal cueing for AD management, weight distribution, limb advancement, and posture to minimize fall risk and decrease pain report. Stairs: Guided patient with safe and correct negotiation of 2 x 6 inch steps and 3 x 4 inch steps while holding onto bilateral rails with step to gait pattern requiring only standby assist and minimal verbal cueing for limb sequence, hand placement, and increased knee flexion on the left during each ascent to minimize fall risk and reduce pain report. Balance: Static Sitting: Normal Dynamic Sitting: Normal Static Standing: Fair Dynamic Standing: Fair Special Tests: Mobility Limitations Standardized Measure [facility] AM-PAC 6 clicks Basic Mobility Inpatient Short Form: Raw Score: 23 CMS Score: 11% deficit Informed Consent/Education: Patient instructed in purpose of PT consult. Packet containing TKA exercise protocol has been given to patient. Education and training on initial set of exercises that can be done at home have been completed with patient. Trained patient with correct performance of exercises below to maximize motor control, joint flexibility, soft tissue extensibility of the L knee musculature: Access Code: [email or web address] URL: [email or web address] Date: 03/10/2024 Prepared by: Molly Lepe Exercises - Supine Quad Set - 1 x daily - 7 x weekly - 1 sets - 10 reps - 5 hold - Supine Heel Slide - 1 x daily - 7 x weekly - 1 sets - 10 reps - 5 hold - Supine Ankle Pumps - 1 x daily - 7 x weekly - 1 sets - 10 reps - 5 hold - Small Range Straight Leg Raise - 1 x daily - 7 x weekly - 1 sets - 10 reps - 5 hold - Seated March - 1 x daily - 7 x weekly - 1 sets - 10 reps - 5 hold Assessment: Patient requires the use of a front-wheeled walker for all mobility ADL performance to maximize indepedence and reduce fall risk. Patient presents with clinical signs and symptoms consistent with current/admitting diagnoses that have resulted to mobility limitations, gait instability, generalized weakness, and impairment of motor control as demonstrated by the following impairment level findings: 1. Decreased strength to left knee major muscle groups 2. Impaired standing balance 3. Limitation of joint range of motion in left knee Impairments are contributing to the following functional limitations: 1. Inability to safely ambulate without assistive device 2. Increase completion time for mobility ADL performance 3. Increased fall risk Patient is assessed as a 36480 moderate complexity based on the following: History: 64-year-old female with impairment level findings, functional limitations, and past medical history as indicated above Examination: Demonstrable impairment in strength, balance, and mobility level with underlying impairments and functional limitations as documented above Presentation: Evolving Decision Makin moderate complexity Goals: N/A. PT evaluation and 1-2 treatment sessions only for functional mobility training using recommended AD and for HEP instruction. Plan of Care/Treatment Plan: N/A. PT evaluation and 1-2 treatment session only for functional mobility training using recommended AD and for HEP instruction. DISCHARGE RECOMMENDATIONS: Home when medically cleared by orthopedic surgeon. Recommend outpatient PT services in order to optimize functional mobility outcomes and facilitate return to independent community ambulation without an assistive device. TREATMENT CODE/TIME: 32564 x 24 minutes for 1 unit (11:25-11:59). Thank you for the opportunity to participate in the care of this patient. Please sign an return this page within 30 days if you agree with the above POC. Thank you! Physician Signature Date [facility] Thank you for the opportunity to participate in the care of this patient. Molly Lepe PT, DPT, CLT [facility] [place], [place]
== END 2024-03-09 12:40 | disposition home or self-care (01) ==
PROVIDERS: PCP Physician Assistant Medical; Visit Provider Student in an Organized Health Care Education/Training Program
PROC: (CPT 27447; principal; 2024-03-09 07:30)
DX: M17.12 Unilateral primary osteoarthritis, left knee (principal); K21.9 Gastro-esophageal reflux disease without esophagitis; I10 Essential (primary) hypertension; G89.18 Other acute postprocedural pain; M25.562 Pain in left knee
CPT/HCPCS: 20985; 27447; 64447; 97162; C1776; J0665; J0690; J2003; J2250; J2371; J2401; J2405; J2704

== ENCOUNTER 2024-03-21 15:15 | Outpatient (CLI) | payer MEDICARE, BC, SELFPAY ==
--- NOTE | 2024-03-21 08:15 | DI.RAD_ITS ---
Exam(s) XR KNEE LT 1V XR STANDING ALIGNMENT EXAM: XR STANDING ALIGNMENT and XR knee LT 1 V CLINICAL HISTORY: 1ST POST OP L TKA. TECHNIQUE: 2D digital imaging was performed. Five images were obtained. COMPARISON: CR XR KNEE RT 3V AP,LAT,AVILA from 01/18/2024 CR XR STANDING ALIGNMENT from 01/18/2024 CR XR KNEE LT 3V AP,LAT,AVILA from 01/18/2024 FINDINGS: BONES: Degenerative changes are seen in the visualized lower lumbar spine. The hips are well maintai bandra. Since the prior examination, there has been interval placement of a left total knee replacement . The orthopedic hardware appears in good position. No suspicious lucencies are seen around the ort hopedic hardware. There is mild soft tissue swelling in the left leg consistent with recent surgery. Mild to moderate degenerative changes are seen in the right knee. Findings include osteophytes bot h medially and laterally. The ankles are well maintained.The right lower extremity is 1.44 cm longer than the left lower extremity. There are old healed left tibial and fibular fractures. SOFT TISSUE: Normal. IMPRESSION: Interval placement of a left total knee arthroplasty. [id number]-do-epwehmhg degenerative changes of the r ight knee as described. DATA REPOSITORY: RADIATION DOSE DELIVERED:
== END 2024-03-21 15:16 | disposition home or self-care (01) ==
LOC: DIORS 15:15
PROVIDERS: PCP Physician Assistant Medical; Visit Provider Student in an Organized Health Care Education/Training Program
DX: Z96.652 Presence of left artificial knee joint (principal); Z47.1 Aftercare following joint replacement surgery
CPT/HCPCS: 99024; 73560; 77073

== ENCOUNTER → 2024-04-21 10:41 | Outpatient (BNVA) | payer MEDICARE, BC, SELFPAY | PROVIDERS: PCP Physician Assistant Medical; Referring Provider Physician Assistant Medical; Visit Provider Student in an Organized Health Care Education/Training Program | DX: Z47.1 Aftercare following joint replacement surgery (principal); Z96.652 Presence of left artificial knee joint | CPT/HCPCS: 99024 ==

== ENCOUNTER → 2024-06-09 14:06 | Outpatient (BNVA) | payer MEDICARE, BC, SELFPAY | PROVIDERS: PCP Physician Assistant Medical; Referring Provider Physician Assistant Medical; Visit Provider Student in an Organized Health Care Education/Training Program | DX: Z47.1 Aftercare following joint replacement surgery (principal); Z96.652 Presence of left artificial knee joint | CPT/HCPCS: 99024 ==